=== PATIENT | female | born 1985 | race Two or more races ===

== ENCOUNTER 2019-03-27 19:08 | Emergency (ER) | payer SELFPAY ==
[~2019-03-27] VITALS: Ht 152.4 cm; Wt 56.7 kg
[2019-03-27 19:32] VITALS: BP 117/75
--- NOTE | 2019-03-27 20:04 | PHYS DOC ---
Past Medical History Past Medical History: No Pertinent History (KENDAL LLANOS APRN) Past Surgical History: No Surgical History (KENDAL LLANOS APRN) Alcohol Use: None Drug Use: None (KENDAL LLANOS APRN) Attending Signature I have participated in the care of this patient and I have reviewed and agree with all pertinent clinical information above including history, exam, and recommendations. 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 She denies any injury. States that sharp and shooting. Currently rates her pain a 7 out of 10. She states she is only been taking 1 Aleve. (KENDAL LLANOS APRN) Review of Systems Review of Systems Musculoskeletal: Denies back pain or left hip/left lower back that radiates down the back of the left leg joint pain [] All other systems were reviewed and found to be within normal limits, except as documented in this note. (KENDAL LLANOS APRN) Allergies Allergies Allergies Coded Allergies Type Severity Reaction Last Updated Verified No Known Drug Allergies 03/27/19 No (IONA MACK MD) Physical Exam Physical Exam Constitutional: Well developed, well nourished, no acute distress, non-toxic appearance. [] HENT: Normocephalic, atraumatic, bilateral external ears normal, oropharynx moist, no oral exudates, nose normal. [] Eyes: PERRLA, EOMI, conjunctiva normal, no discharge. [] Neck: Normal range of motion, no tenderness, supple, no stridor. [] Cardiovascular:Heart rate regular rhythm, no murmur [] Lungs & Thorax: Bilateral breath sounds clear to auscultation [] Abdomen: Bowel sounds normal, soft, no tenderness, no masses, no pulsatile masses. [] Skin: Warm, dry, no erythema, no rash. [] Back: No tenderness, no CVA tenderness. [] Extremities: No tenderness, no cyanosis, no clubbing, ROM intact, no edema. [] Neurologic: Alert and oriented X 3, normal motor function, normal sensory function, no focal deficits noted. [] Psychologic: Affect normal, judgement normal, mood normal. [] (KENDAL LLANOS APRN) Current Patient Data Vital Signs Vital Signs Date Time Temp Pulse Resp B/P (MAP) Pulse Ox O2 Delivery O2 Flow Rate FiO2 03/27/19 19:32 97.5 79 18 117/75 (89) 100 Room Air 97.5 (IONA MACK MD) EKG EKG [] (KENDAL LLANOS APRN) Radiology/Procedures Radiology/Procedures [] (KENDAL LLANOS APRN) Course & Med Decision Making Course & Med Decision Making No tenderness to patient's back or hips or legs. No extremity edema. No deformities or laxity or swelling of joints. Ambulatory with a steady gait. Denies injuries. Skin pink warm and dry. Alert And oriented. The patient this is likely sciatica. I told the patient she can take 4 ibuprofen every 8 hours and he states that he try a heating pad and also there are [id number] patches for aggravated knows of lidocaine she can use. I told her there are also exercises and stretches for sciatica. Patient does not have a primary care provider. Denies any numbness or tingling, incontinence, weakness. (KENDAL LLANOS APRN) Dragon Disclaimer Dragon Disclaimer This electronic medical record was generated, in whole or in part, using a voice recognition dictation system. (KENDAL LLANOS APRN) Departure Departure Impression: Primary Impression: Hip pain, left Additional Impressions: Left low back pain Encounter for medical screening examination Disposition: HOME, SELF-CARE Condition: STABLE Referrals: NO PCP (PCP) Patient Instructions: Medical Screening Exam, Sciatica with Rehab-SportsMed Problem Qualifiers Additional Impressions: Left low back pain Chronicity: acute Sciatica presence: with sciatica Sciatica laterality: sciatica of left side Qualified Codes: M54.42 - Lumbago with sciatica, left side KENDAL LLANOS APRN Mar 27, 2019 20:04 IONA AMCK MD Mar 28, 2019 04:56
== END 2019-03-27 20:10 | disposition home or self-care (01) ==
LOC: ER 19:08
DX: M54.42 Lumbago with sciatica, left side (principal); M25.552 Pain in left hip
CPT/HCPCS: 99281

== ENCOUNTER → 2020-08-09 | Outpatient (CLI) | payer MEDICAID ==
--- NOTE | 2020-08-09 15:48 | RAD ---
EXAM: Obstetrics sonogram. HISTORY: Unsure dates. TECHNIQUE: Sonographic imaging of a gravid uterus was performed. COMPARISON: None. FINDINGS: There is a single intrauterine fetus in breech presentation with a normal heart rate of 147 bpm. The cervix is closed and measures 3.5 cm in length. There is an anterior grade 1 placenta witho ut evidence of placenta previa. The anatomic fluid index is grossly normal. The biparietal diameter is 2.89 cm, corresponding with 15 weeks and 2 days. The head circumference is 10.80 cm, corresponding with 15 weeks and 1 day. The abdominal circumference is 8.52 cm, correspondi ng with 14 weeks and 6 days. The femoral length is 1.61 cm, corresponding with 14 weeks and 5 days. T he estimated gestational age patient combined ultrasound measurements is 15 weeks and 0 days and the estimated due date is 01/31/2021. IMPRESSION: 1. Single intrauterine fetus with a normal heart rate and gestational age based on ultrasound measure ments of 15 weeks and 0 days. 2. Note is made that a formal survey can be performed at approximately 20 weeks gestation. Electronically signed by: Martha Cuadra MD (08/09/2020 3:46 PM) [id number]
== END ==
LOC: US 14:34
PROVIDERS: ATTEND Obstetrics & Gynecology
DX: Z34.91 Encounter for supervision of normal pregnancy, unspecified, first trimester (principal); Z3A.15 15 weeks gestation of pregnancy
CPT/HCPCS: 76805

== ENCOUNTER 2020-09-16 19:28 | Emergency (ER) | payer MEDICAID ==
[~2020-09-16] VITALS: Ht 152.4 cm; Wt 65.5 kg
[2020-09-16 19:40] VITALS: BP 126/72
--- NOTE | 2020-09-16 19:51 | PHYS DOC ---
Past Medical History Past Medical History: No Pertinent History Past Surgical History: No Surgical History Smoking Status: Never Smoker Alcohol Use: None Drug Use: None General Adult EDM: Chief Complaint: VAGINAL PROBLEM HPI: HPI: Patient is a 35 year old female 13 para 2, 10 miscarriages currently 17 weeks presenting to the ED today complaining of vaginal discharge that began a week ago. Patient denies any abdominal pain, denies any nausea vomiting. Denies any concerns for STDs, denies any vaginal bleeding. She follows up with Dr. Rolando Monson [employer] [facility] Review of Systems: Review of Systems: Constitutional: Denies fever or chills. [] GI: Reports vaginal discharge. Denies abdominal pain, nausea, vomiting, bloody stools or diarrhea. [] : Denies dysuria. [] Musculoskeletal: Denies back pain or joint pain. [] Integument: Denies rash. [] Neurologic: Denies headache, focal weakness or sensory changes. [] Psychiatric: Denies depression or anxiety. [] Heart Score: C/O Chest Pain: N/A Risk Factors: Risk Factors: DM, Current or recent (<one month) smoker, HTN, HLP, family history of CAD, obesity. Risk Scores: Score 0 - 3: 2.5% MACE over next 6 weeks - Discharge Home Score 4 - 6: 20.3% MACE over next 6 weeks - Admit for Clinical Observation Score 7 - 10: 72.7% MACE over next 6 weeks - Early Invasive Strategies Allergies: Allergies: Allergies Coded Allergies Type Severity Reaction Last Updated Verified No Known Drug Allergies 03/27/19 No Physical Exam: PE: Constitutional: Well developed, well nourished, no acute distress, non-toxic appearance. [] Abdomen: Bowel sounds normal, soft, no tenderness, no masses, no pulsatile masses. [] Pelvic exam External pelvic appears normal, cervix is visualized, closed, no CMT, no adnexal tenderness, mild amount of white discharge in the vaginal vault. Skin: Warm, dry, no erythema, no rash. [] Back: No tenderness, no CVA tenderness. [] Extremities: No tenderness, no cyanosis, no clubbing, ROM intact, no edema. [] Neurologic: Alert and oriented X 3, normal motor function, normal sensory function, no focal deficits noted. [] Psychologic: Affect normal, judgement normal, mood normal. [] Current Patient Data: Labs: Laboratory Tests Test 09/16/20 19:46 POC Urine HCG, Qualitative Hcg positive (Negative) EKG: EKG: [] Radiology/Procedures: Radiology/Procedures: [] Course & Med Decision Making: Course & Med Decision Making Pertinent Labs and Imaging studies reviewed. (See chart for details) This is a 35-year-old female patient currently 17 weeks presenting to the ED today with vaginal discharge for 1 week. Wet prep is negative, urine positive for UTI, discharged on cephalexin. She has an appointment with her [employer] on Sunday next . F[facility] [id number] Leigha Disclaimer: Leigha Disclaimer: This electronic medical record was generated, in whole or in part, using a voice recognition dictation system. Departure Departure Impression: Primary Impression: Urinary tract infection during Qualified Codes: O23.42 - Unspecified infection of urinary tract in , second trimester Disposition: HOME / SELF CARE / HOMELESS Condition: STABLE Referrals: NO PCP (PCP) ROLANDO MONSON MD Follow-up on Sunday next as scheduled Patient Instructions: - Urinary Tract Infection Additional Instructions: You have urinary tract infection, take the prescribed antibiotics until completed. Please follow-up with your [employer] on Sunday as scheduled Scripts Cephalexin (CEPHALEXIN) 500 Mg Tablet 1 TAB PO BID, #14 TAB Prov: SASCHA MERCADO APRN 09/16/20 SASCHA MERCADO APRN September 16, 2020 19:51
[2020-09-16 20:16] LABS: BILIRUBIN,URINE NEGATIVE (NEG); CLARITY,URINE CLEAR; COLOR,URINE YELLOW; NITRITE,URINE NEGATIVE (NEG); PROTEIN,URINE NEGATIVE (NEG-TRACE); UROBILINOGEN,URINE 0.2 mg/dL (0.2 mg/dL)
[2020-09-16 20:23] LABS: BACTERIA,URINE FEW /HPF (0-FEW); RBC,URINE OCC /HPF (0-2); WBC,URINE >40 /HPF (0-4)
[2020-09-16] MEDS ORDERED: CEPH500T PO (20:51)
[2020-09-16] MEDS ORDERED: CEPHALEXIN 250 MG CAPSULE. PO STA (20:52)
[2020-09-20 15:11] LABS: GC PROBE Negative (Negative)
== END 2020-09-16 21:09 | disposition home or self-care (01) ==
LOC: ER 19:28
DX: O23.42 Unspecified infection of urinary tract in pregnancy, second trimester (principal); Z3A.17 17 weeks gestation of pregnancy
CPT/HCPCS: 81001; 81025; 87086; 87491; 87591; 99284; Q0111

== ENCOUNTER 2020-09-18 06:24 | Observation (INO) | payer MEDICAID ==
[~2020-09-18 06:24] MED LIST: CEPH500T PO
[2020-09-18] MEDS ORDERED: IV RINGERS,LACTATED 1000ML 1,000 ML IV PRN (06:45)
[2020-09-18 07:09] LABS: BILIRUBIN,URINE NEGATIVE (NEG); CLARITY,URINE CLEAR; COLOR,URINE YELLOW; NITRITE,URINE NEGATIVE (NEG); PH,URINE 6.5 (<5.0-8.0); PROTEIN,URINE NEGATIVE (NEG-TRACE); UROBILINOGEN,URINE 0.2 mg/dL (0.2 mg/dL)
[2020-09-18 07:18] LABS: BARBITURATES NEG (NEG); BENZODIAZEPINES NEG (NEG); CANNABINOIDS NEG (NEG); COCAINE NEG (NEG); METHADONE NEG (NEG); OPIATES NEG (NEG); PHENCYCLIDINE NEG (NEG)
[2020-09-18 07:22] LABS: AMPHETAMINE/METHAMPHETAMINE NEG (NEG); BACTERIA,URINE FEW /HPF (0-FEW); RBC,URINE 0 /HPF (0-2)
== END 2020-09-18 08:20 | disposition home or self-care (01) ==
LOC: 3 SO LND 06:24
PROVIDERS: ADMIT Obstetrics & Gynecology; ATTEND Obstetrics & Gynecology
DX: O26.892 Other specified pregnancy related conditions, second trimester (principal); R10.9 Unspecified abdominal pain; N89.8 Other specified noninflammatory disorders of vagina; Z3A.20 20 weeks gestation of pregnancy; Z79.899 Other long term (current) drug therapy
CPT/HCPCS: 59025; 80307; 81001; 87086; G0378; G0379